=== PATIENT | female | born 1940 | race Caucasian/White ===

== ENCOUNTER 2019-07-10 13:18 | Inpatient (IN) ==
[2019-07-10] MEDS ORDERED: ACETAMINOPHEN 325 MG TABLET PO PRN (16:15)
[2019-07-10] MEDS ORDERED: PROMETHAZINE 25 MG TABLET PO PRN (16:15)
[2019-07-10] MEDS ORDERED: hydrALAZINE 20 MG/1 ML VIAL IV PRN (16:21)
[2019-07-10] MEDS: SODIUM CHLORIDE 0.45% 1,000 ML IV SCH (17:27)
[2019-07-10] MEDS: HEPARIN 5,000 UNIT/1 ML VIAL SUBCUT SCH (17:27)
[2019-07-10 21:55] LABS: Basophils # 0.1 10*3/uL (0.0-0.2); Basophils % 0.8 % (0.0-0.8); Eosinophils # 0.2 10*3/uL (0.0-0.87); Eosinophils % 3.2 % (0.00-10.9); Hematocrit 32.3 VOL% (35.7-47.0); Hemoglobin 9.9 GM/DL (12.0-16.0); Immature Granulocytes % 0.3 %; Immature Granulocytes Absolute 0.02 #; Lymphocytes # 1.2 10*3/uL (1.4-4.0); Lymphocytes % 19.6 % (21.3-54.2); Mean Corpuscular HGB Conc 30.7 GM/DL (32-36); Mean Corpuscular Volume 97.9 FL (87-102); Mean Platelet Volume 10.6 FL (9.6-12.0); Monocytes % 8.9 % (1.7-12.7); Neutrophils % 67.2 % (38.7-73.9); Platelet Count 202 T/CUMM (130-400); Red Cell Distribution Width 14.4 % (9.3-17.3); White Blood Count 6.3 T/CUMM (4-12)
[2019-07-10] MEDS: DOCUSATE SODIUM 100 MG CAPSULE PO SCH (22:23)
[2019-07-10] MEDS: MORPHINE 4 MG/1 ML VIAL IV PRN (23:30)
[2019-07-11 00:18] LABS: Apearance,Urine CLEAR (Clear); Bilirubin,Urine Negative (Negative); Blood, Urine Negative (Negative); Glucose,Urine (UA) Negative (Negative); Hyaline Casts,Urine 3 /LPF (0-3); Ketones,Urine 5 mg/dL (Negative); Mucus,Urine Occasional /LPF (Occasional); Nitrite,Urine Negative (Negative); Protein,Urine Negative; RBC,Urine 2 /HPF (0-4); Squamous Epithelial Cell,Urine Occasional /HPF (0-10); Urine Color Straw (Yellow); Urine Specific Gravity 1.008 (1.001-1.035); Urine Urobilinogen < 2.0 EU/DL (0.2-1.0); WBC,Urine 4 /HPF (0-6)
[2019-07-11] MEDS: HEPARIN 5,000 UNIT/1 ML VIAL SUBCUT SCH ×3 (01:48→16:47)
[2019-07-11] MEDS: MORPHINE 4 MG/1 ML VIAL IV PRN ×2 (04:57→08:54)
[2019-07-11] MEDS: SODIUM CHLORIDE 0.45% 1,000 ML IV SCH ×2 (05:00→19:11)
[2019-07-11 06:18] LABS: Basophils # 0.1 10*3/uL (0.0-0.2); Basophils % 1.2 % (0.0-0.8); Eosinophils # 0.3 10*3/uL (0.0-0.87); Eosinophils % 4.9 % (0.00-10.9); Hematocrit 33.1 VOL% (35.7-47.0); Hemoglobin 10.4 GM/DL (12.0-16.0); Immature Granulocytes % 0.2 %; Immature Granulocytes Absolute 0.01 #; Lymphocytes # 1.1 10*3/uL (1.4-4.0); Lymphocytes % 21.2 % (21.3-54.2); Mean Corpuscular HGB Conc 31.4 GM/DL (32-36); Mean Corpuscular Volume 94.8 FL (87-102); Mean Platelet Volume 11.4 FL (9.6-12.0); Monocytes % 9.3 % (1.7-12.7); Neutrophils % 63.2 % (38.7-73.9); Platelet Count 169 T/CUMM (130-400); Red Blood Count 3.49 MC/CUMM (3.8-5.5); Red Cell Distribution Width 14.2 % (9.3-17.3); White Blood Count 5.2 T/CUMM (4-12)
[2019-07-11 07:02] LABS: Albumin 2.9 G/DL (3.4-5.0); Bilirubin,Total 0.6 MG/DL (0.2-1.0); Calcium 7.5 MG/DL (8.5-10.1); Osmolality,Calculated 284.4 MOS/KG (273-304); Total Protein 5.8 G/DL (6.4-8.3)
[2019-07-11 07:26] LABS: Risk Ratio 4.31; Thyroid Stimulating Hormone 0.896 uIU/ml (0.358-3.74); VLDL CHOLESTEROL 44.2 MG/DL
[2019-07-11] MEDS: PANTOPRAZOLE 40 MG TABLET PO SCH (08:48)
[2019-07-11] MEDS: DOCUSATE SODIUM 100 MG CAPSULE PO SCH ×2 (08:48→21:28)
[2019-07-11] MEDS ORDERED: SODIUM PHOSPHATE INJ 30 MMOL in SODIUM CHLORIDE 0.9% 250 ML IV ONE (10:00)
[2019-07-11] MEDS: DOXYCYCLINE HYCLATE INJ 100 MG in SODIUM CHLORIDE 0.9% 100 ML IV SCH ×2 (12:35→21:29)
[2019-07-11] MEDS ORDERED: LORazepam 2 MG/1 ML VIAL IM ONE (12:37)
[2019-07-11] MEDS: LORATADINE 10 MG TABLET PO SCH (16:17)
[2019-07-11] MEDS ORDERED: ASPIRIN CHEW 81 MG TABLET PO ONE (20:50)
[2019-07-11] MEDS: CARVEDILOL 3.125 MG TABLET PO SCH (21:28)
[2019-07-12] MEDS: HEPARIN 5,000 UNIT/1 ML VIAL SUBCUT SCH ×3 (01:07→16:18)
[2019-07-12 05:12] LABS: Eosinophils # 0.1 10*3/uL (0.0-0.87); Hematocrit 30.3 VOL% (35.7-47.0); Hemoglobin 9.8 GM/DL (12.0-16.0); Immature Granulocytes % 0.5 %; Immature Granulocytes Absolute 0.02 #; Lymphocytes # 0.8 10*3/uL (1.4-4.0); Lymphocytes % 20.2 % (21.3-54.2); Mean Corpuscular HGB Conc 32.3 GM/DL (32-36); Mean Corpuscular Volume 92.1 FL (87-102); Mean Platelet Volume 10.8 FL (9.6-12.0); Neutrophils % 71.3 % (38.7-73.9); Platelet Count 204 T/CUMM (130-400); Red Blood Count 3.29 MC/CUMM (3.8-5.5); Red Cell Distribution Width 13.7 % (9.3-17.3)
[2019-07-12 05:30] LABS: Albumin 2.8 G/DL (3.4-5.0); Bilirubin,Total 0.8 MG/DL (0.2-1.0); Calcium 7.5 MG/DL (8.5-10.1); Osmolality,Calculated 282.3 MOS/KG (273-304); Total Protein 5.8 G/DL (6.4-8.3)
[2019-07-12] MEDS: SODIUM CHLORIDE 0.45% 1,000 ML IV SCH ×2 (06:06→10:58)
[2019-07-12 06:14] LABS: CKMB % 1.2 %
[2019-07-12 06:16] LABS: Troponin I 0.056 NG/ML (0.00-0.045)
[2019-07-12] MEDS: LORATADINE 10 MG TABLET PO SCH (08:26)
[2019-07-12] MEDS: DOCUSATE SODIUM 100 MG CAPSULE PO SCH ×2 (08:26→20:32)
[2019-07-12] MEDS: PANTOPRAZOLE 40 MG TABLET PO SCH (08:26)
[2019-07-12] MEDS: ASPIRIN CHEW 81 MG TABLET PO SCH (08:26)
[2019-07-12] MEDS: CARVEDILOL 3.125 MG TABLET PO SCH ×2 (08:26→16:18)
[2019-07-12] MEDS: busPIRone 15 MG TABLET PO SCH (10:13)
[2019-07-12] MEDS: DOXYCYCLINE HYCLATE INJ 100 MG in SODIUM CHLORIDE 0.9% 100 ML IV SCH (10:57)
[2019-07-12] MEDS ORDERED: CLORAZEPATE 7.5 MG TABLET PO ONE (16:03)
[2019-07-12] MEDS: MORPHINE 4 MG/1 ML VIAL IV PRN (16:18)
[2019-07-12] MEDS: hydrALAZINE 25 MG TABLET PO SCH (20:31)
[2019-07-12] MEDS: DOXYCYCLINE HYCLATE 100 MG CAPSULE PO SCH (20:32)
[2019-07-12] MEDS: CLORAZEPATE 3.75 MG TABLET PO PRN (23:13)
[2019-07-13] MEDS: HEPARIN 5,000 UNIT/1 ML VIAL SUBCUT SCH ×3 (00:11→16:49)
[2019-07-13] MEDS: MORPHINE 4 MG/1 ML VIAL IV PRN ×4 (04:29→22:08)
[2019-07-13] MEDS: LORATADINE 10 MG TABLET PO SCH (08:14)
[2019-07-13] MEDS: DOCUSATE SODIUM 100 MG CAPSULE PO SCH ×2 (08:14→21:13)
[2019-07-13] MEDS: DOXYCYCLINE HYCLATE 100 MG CAPSULE PO SCH ×2 (08:14→22:08)
[2019-07-13] MEDS: PANTOPRAZOLE 40 MG TABLET PO SCH (08:14)
[2019-07-13] MEDS: CLORAZEPATE 3.75 MG TABLET PO PRN (08:14)
[2019-07-13] MEDS: busPIRone 15 MG TABLET PO SCH (08:14)
[2019-07-13] MEDS: CARVEDILOL 3.125 MG TABLET PO SCH ×2 (08:15→16:49)
[2019-07-13] MEDS: hydrALAZINE 25 MG TABLET PO SCH (08:15)
[2019-07-13] MEDS: ASPIRIN CHEW 81 MG TABLET PO SCH (08:15)
[2019-07-13] MEDS ORDERED: busPIRone 15 MG TABLET PO SCH (09:00)
[2019-07-13] MEDS ORDERED: LORazepam 2 MG/1 ML VIAL IV PRN (11:32)
[2019-07-13] MEDS: ONDANSETRON 4 MG/2 ML VIAL IV PRN ×2 (12:14→21:12)
[2019-07-13] MEDS: LORazepam 1 MG TABLET PO SCH ×2 (14:31→21:12)
[2019-07-13] MEDS: CARVEDILOL 6.25 MG TABLET PO SCH (22:08)
[2019-07-14] MEDS: HEPARIN 5,000 UNIT/1 ML VIAL SUBCUT SCH ×2 (02:21→08:36)
[2019-07-14] MEDS: MORPHINE 4 MG/1 ML VIAL IV PRN ×2 (05:10→10:32)
[2019-07-14] MEDS: ONDANSETRON 4 MG/2 ML VIAL IV PRN ×2 (05:22→08:05)
[2019-07-14] MEDS: LORazepam 1 MG TABLET PO SCH (08:35)
[2019-07-14] MEDS: LORATADINE 10 MG TABLET PO SCH (08:35)
[2019-07-14] MEDS: ASPIRIN CHEW 81 MG TABLET PO SCH (08:35)
[2019-07-14] MEDS: CARVEDILOL 6.25 MG TABLET PO SCH (08:35)
[2019-07-14] MEDS: PANTOPRAZOLE 40 MG TABLET PO SCH (08:35)
[2019-07-14] MEDS: DOXYCYCLINE HYCLATE 100 MG CAPSULE PO SCH (08:36)
[2019-07-14] MEDS: DOCUSATE SODIUM 100 MG CAPSULE PO SCH (08:36)
[2019-07-14] MEDS ORDERED: OXYMETAZOLINE 0.05% NASAL SPRAY 15 ML BOTTLE BOTH NARES SCH (09:00)
[2019-07-14 12:07] VITALS: BP 157/76
== END 2019-07-14 14:05 | DRG 880 ==
LOC: N.ICU → SUATTDRO 15:36 → N.TELEN 15:51
PROVIDERS: ADMIT Internal Medicine; ATTEND Internal Medicine